=== PATIENT | female | born 1990 | race Caucasian/White ===

== ENCOUNTER 2017-03-31 10:19 | Inpatient (IN) | payer OTHER ==
[~2017-03-31] VITALS: Ht 167.6 cm; Wt 69.9 kg
[2017-03-31] MEDS ORDERED: SOD CHLORIDE 0.9% 1,000 ML IV STA (11:17)
[2017-03-31 11:32] LABS: URINE BLOOD (Dip) POC Negative (NEGATIVE)
[2017-03-31] MEDS ORDERED: SOD CHLORIDE 0.9% 250 ML IV ONE (12:06)
[2017-03-31 12:07] LABS: ANION GAP 14 (8-16); BLOOD UREA NITROGEN 9 mg/dl (7-20); CALCIUM 9.4 mg/dl (8.4-10.2); CARBON DIOXIDE 27 mmol/L (21-31); CHLORIDE 106 mmol/L (97-110); CREATININE 0.68 mg/dl (0.44-1.00); GLUCOSE 74 mg/dl (70-220); POTASSIUM 4.2 mmol/L (3.5-5.1); SODIUM 143 mmol/L (135-144)
[2017-03-31 12:20] LABS: TROPONIN-I < 0.012 ng/ml (0.00-0.12)
[2017-03-31] MEDS ORDERED: ONDANSETRON 4 MG INJ IV PRN ×2 (12:30→14:00)
[2017-03-31] MEDS ORDERED: ACETAMINOPHEN 325 MG TAB PO PRN (12:30)
[2017-03-31 12:49] LABS: ABNORMAL IP MESSAGE 1; HEMATOCRIT 18.9 % (37.0-47.0); MEAN CORPUSCULAR HEMOGLOBIN 16.1 pg (29.0-33.0); MEAN CORPUSCULAR HGB CONC 25.4 g/dl (32.0-37.0); MEAN CORPUSCULAR VOLUME 63.2 fl (82.0-101.0); MEAN PLATELET VOLUME 10.6 fl (7.4-10.4); PLATELET COUNT 324 10^3/UL (140-415); RED BLOOD COUNT 2.99 10^6/ul (4.20-5.40); RED CELL DISTRIBUTION WIDTH 19.5 % (11.5-14.5); WHITE BLOOD COUNT 4.7 10^3/ul (4.8-10.8)
--- NOTE | 2017-03-31 13:11 | RADRPT ---
PROCEDURE: Chest x-ray CLINICAL INDICATION: Weakness TECHNIQUE: Chest single view COMPARISON: None FINDINGS: The heart is normal in size. The pulmonary vessels are normal in caliber. The lungs are clear. Th e costophrenic angles are sharp. The visualized bony thorax is unremarkable. IMPRESSION: No acute cardiopulmonary disease. RPTAT: HH .Alberto Hayes MD, Date Time Electronically viewed and signed by .Alberto Hayes MD, MD on 03/31/2017 13:10 .W/
--- NOTE | 2017-03-31 13:40 | ERD ---
ER Documentation Chief Complaint Chief Complaint DIZZINESS, FAINTED HPI This is a 27-year-old female, with no past medical history or surgery, p resenting to the emergency department for dizziness, lightheadedness and 2 syncopal episodes. Patient states she feels dizzy, like the room is spinning when she is sitting or standing. Patient states at times he has chest pain and heart palpitations. Patient states she had one syncopal episode last week while at a restaurant. Patient had another syncopal episode today after taking a shower. Patient states her first syncopal episode she had loss of consciousness for approximately 15 seconds. Patient denies hitting her head. No headache. No change in mood or behavior. No vision changes. No loss of vision. No diplopia. Patient states she eats vegan and has been doing so for the past 10 months. ROS All systems reviewed and are negative except as per history of present illness. Medications Home Meds No Active Prescriptions or Reported Meds Allergies Allergies: Coded Allergies: No Known Allergy (Unverified , 03/31/17) PMhx/Soc Medical and Surgical Hx: pt denies Medical Hx, pt denies Surgical Hx Hx Alcohol Use: No Hx Substance Use: No Hx Tobacco Use: No Smoking Status: Never smoker Physical Exam Vitals Vital Signs Date Time Temp Pulse Resp B/P Pulse Ox O2 Delivery O2 Flow Rate FiO2 03/31/17 10:22 98.7 72 19 103/55 100 Physical Exam Const: No acute distress, alert, pale Head: Atraumatic Eyes: Normal Conjunctiva ENT: Normal External Ears, Nose and Mouth. Neck: Full range of motion..~ No meningismus. Resp: Clear to auscultation bilaterally. No wheezing, rhonchi or crackles. No stridor or labored breathing. Cardio: Regular rate and rhythm, no murmurs Abd: Soft, non tender, non distended. Normal bowel sounds Skin: No petechiae or rashes Back: No midline or flank tenderness Ext: No cyanosis, or edema Neur: Awake and alert Psych: Normal Mood and Affect Rectal: negative for lesions, gross occult blood Result Diagram: 04/01/17 0540 04/01/17 0541 Results 24 hrs Laboratory Tests Test 03/31/17 11:25 03/31/17 11:28 03/31/17 11:32 03/31/17 12:15 Iron Level < 10ug/dl Total Iron Binding Capacity 526ug/dl Percent Iron Saturation % SAT Sodium Level 143mmol/L Potassium Level 4.2mmol/L Chloride Level 106mmol/L Carbon Dioxide Level 27mmol/L Anion Gap 14 Blood Urea Nitrogen 9mg/dl Creatinine 0.68mg/dl Glucose Level 74mg/dl Calcium Level 9.4mg/dl Troponin I < 0.012ng/ml Bedside Urine pH (LAB) 8.5 Bedside Urine Protein (LAB) 1+ Bedside Urine Glucose (UA) Negative Bedside Urine Ketones (LAB) Negative Bedside Urine Blood Negative Bedside Urine Nitrite (LAB) Negative Bedside Urine Leukocyte Esterase (L Trace White Blood Count 4.710^3/ul Red Blood Count 2.9910^6/ul Hemoglobin 4.8g/dl Hematocrit 18.9% Mean Corpuscular Volume 63.2fl Mean Corpuscular Hemoglobin 16.1pg Mean Corpuscular Hemoglobin Concent 25.4g/dl Red Cell Distribution Width 19.5% Platelet Count 52736^3/UL Mean Platelet Volume 10.6fl Neutrophils % 77.3% Lymphocytes % 15.0% Monocytes % 7.1% Eosinophils % 0.4% Basophils % 0.2% Nucleated Red Blood Cells % 0.0/100WBC Neutrophils # 10^3/ul Lymphocytes # 10^3/ul Monocytes # 10^3/ul Eosinophils # 10^3/ul Basophils # 10^3/ul Nucleated Red Blood Cells # 10^3/ul Platelet Estimate NORMAL Polychromasia 3+ Hypochromasia 3+ Poikilocytosis 2+ Anisocytosis 3+ Microcytosis 3+ Elliptocytes 2+ Current Medications Medications (Trade) Dose Ordered Sig/Alicia Route PRN Reason Start Time Stop Time Status Last Admin Dose Admin Sodium Chloride 1,000 ml @ 1,000 mls/hr Q1H STAT IV 03/31/17 11:17 03/31/17 12:16 DC 03/31/17 11:26 Sodium Chloride (NS) 250 ml @ 0 mls/hr Q0M ONCE IV 03/31/17 12:06 03/31/17 12:10 DC 03/31/17 13:46 Procedures/MDM [place] [id number] Radiology Main Line: [phone] DIAGNOSTIC IMAGING REPORT Patient: MARY PUTNAM : 1990 Age: 27 Sex: F MR #: [id number] DOS: 03/31/17 1117 Ordering MD: KIM JAIMES NP Location: [facility] Room/Bed: PROCEDURE: Chest x-ray CLINICAL INDICATION: Weakness TECHNIQUE: Chest single view COMPARISON: None FINDINGS: The heart is normal in size. The pulmonary vessels are normal in caliber. The lungs are clear. The costophrenic angles are sharp. The visualized bony thorax is unremarkable. IMPRESSION: No acute cardiopulmonary disease. EKG: As interpreted by myself and Dr. Whipple Rate/Rhythm: Normal sinus rhythm with heart rate 83 bpm QRS, ST, T-waves: No changes consistent w/ acute ischemia Impression: No evidence of ischemia or arrhythmia MDM: This is a 27-year-old female presenting to emerge department for dizziness , lightheadedness and 2 syncopal episodes. EKG shows normal sinus rhythm with heart rate 83 bpm. Negative for STEMI. Chest x-ray reviewed by radiologist as no acute cardiopulmonary disease. CBC shows hemoglobin 4.8 and hematocrit 18.9. BMP is negative for electrolyte imbalance. Troponin is negative. Urine dip is negative for infection. Urine is negative. Consulted Dr. Whipple regarding this patient and we agree that patient requires blood transfusion and hospitalization. Digital rectal exam negative for gross blood. Patient will be admitted. Discussed findings and admission with patient and she verbalizes understanding. Patient given 1 L IV fluid bolus of normal saline. Patient's vitals are stable. Patient is stable and in no acute distress. Diagnosis is symptomatic anemia Departure Diagnosis: Primary Impression: Anemia Anemia type: unspecified type Qualified Code: D64.9 - Anemia, unspecified type Additional Impression: Syncope Syncope type: unspecified Qualified Code: R55 - Syncope, unspecified syncope type Condition: Fair KIM REYES NP Mar 31, 2017 13:40
[2017-03-31] MEDS ORDERED: SOD CHLORIDE 0.9% 1,000 ML IV SCH (13:47)
--- NOTE | 2017-03-31 13:52 | EN ---
Date/Time of Note Date/Time of Note DATE: 03/31/17 TIME: 13:51 ER Progress Note I have seen and evaluated the patient along with the PA and/or [employer] provider. I agree with the evaluation and plan of care. Please see their documentation for full ER course and evaluation. In short: This patient presents with 2 episodes of syncope and generalized fatigue and malaise. On exam: Injectable pallor is noted, benign abdominal exam. Assessment and plan: The patient was noted to have significant anemia on laboratory testing. The patient is a vegan and not taking supplements. This is likely secondary to iron deficiency versus B12 anemia. The patient will benefit from transfusion. No signs of GI bleed. No signs of menorrhagia. I discussed with the patient and/or family the risks, benefits, alternatives of blood transfusion. This includes allergic reaction and infections including HIV and hepatitis. The patient and/or family were able to verbalize these risks , stated understanding. A document has been signed and placed in the chart. The patient will be typed and crossmatched for 3 units of packed red blood cells and be admitted for further management. Accepting care team and consultations: I discussed the current laboratory data, diagnostic imaging and emergency care provided. Admitting team: dr Murillo Admitting team indication: Insurance directed ROSS RICE MD Mar 31, 2017 13:52
[2017-03-31] MEDS ORDERED: ACETAMINOPHEN 650 MG SUPP PR PRN (14:00)
[2017-03-31] MEDS ORDERED: DOCUSATE SODIUM 100 MG CAP PO PRN (14:00)
[2017-03-31] MEDS ORDERED: NACL 0.9% 3 ML SYG IV SCH (14:00)
[2017-03-31] MEDS ORDERED: MAGNESIUM HYDROXIDE 30ML CUP PO PRN (14:00)
[2017-03-31] MEDS ORDERED: BISACODYL 10 MG SUPP PR PRN (14:00)
[2017-03-31] MEDS ORDERED: HYDROCODONE/APAP (5/325) TAB PO PRN ×2 (14:00)
[2017-03-31] MEDS ORDERED: morphine 2 MG INJ IV PRN (14:00)
[2017-03-31 14:10] LABS: IRON < 10 ug/dl (35-150)
[2017-03-31 14:19] LABS: TOTAL IRON BINDING CAPACITY 526 ug/dl (241-421)
[2017-03-31 14:48] LABS: BASOPHILS % 0.2 % (0.0-2.0); EOSINOPHILS % 0.4 % (0.0-7.0); MONOCYTES % 7.1 % (0.0-11.0)
[2017-03-31 14:51] LABS: HEMOGLOBIN 4.8 g/dl (12.0-16.0); NEUTROPHILS % 77.3 % (39.0-77.0)
[2017-03-31 14:52] LABS: ANISOCYTOSIS 3+ (0-0); HYPOCHROMASIA 3+ (0-0); MICROCYTOSIS 3+ (0-0); POIKILOCYTOSIS 2+ (0-0); POLYCHROMASIA 3+ (0-0)
[2017-03-31 14:53] LABS: PLATELET ESTIMATE NORMAL
--- NOTE | 2017-03-31 15:02 | RADRPT ---
PROCEDURE: US Carotids. CLINICAL INDICATION: bruit , syncope TECHNIQUE: Multiple sonographic of the carotid bifurcation region and vertebral arteries were obta ined utilizing flores scale, duplex and color-flow imaging. The images were reviewed on a PACS worksta tion. COMPARISON: No prior studies are available for comparison. FINDINGS: Evaluation of the right carotid bifurcation region reveals no significant calcific atherosclerotic d isease. Evaluation of the left carotid bifurcation region reveals no significant calcific atherosclerotic di sease. There is antegrade flow within the vertebral arteries bilaterally. RIGHT CAROTID MEASUREMENTS: Common Carotid Mdejvo578.4 (cm/sec) Internal Carotid Artery - aeclxtpc598.1 (cm/sec) Internal Carotid Artery - mid88.7 (cm/sec) Internal Carotid Artery - odhdgp11.5 (cm/sec) Internal Carotid/Common Carotid0.98 LEFT CAROTID MEASUREMENTS: Common Carotid Sqpohh619 (cm/sec) Internal Carotid Artery - vtapsael32.5 (cm/sec) Internal Carotid Artery - pno392.5 (cm/sec) Internal Carotid Artery - ifrmna07.4 (cm/sec) Internal Carotid/Common Carotid0.97 RPTAT: AA IMPRESSION: No evidence for hemodynamically significant stenosis in the bilateral internal carotid arteries - va lidated velocity measurements with angiographic measurements, velocity criteria are extrapolated fro m diameter data as defined by the Society of Radiologists in Ultrasound Consensus Conference Radiolo gy 2003; 229;340-346. This study does indirectly reference the measurement of the distal ICA diamet er as the denominator for stenosis measurement. Normal antegrade flow in the vertebral arteries bilaterally. .nAdreas Bergman MD, Date Time Electronically viewed and signed by .Andreas Bergman MD, MD on 03/31/2017 15:02 .S/
[2017-03-31] MEDS ORDERED: SOD FERRIC GLUC COMPLX 125 MG in SOD CHLORIDE 0.9% 100 ML IVPB SCH (16:30)
[2017-03-31] MEDS ORDERED: LORAZEPAM 2 MG INJ IV PRN (17:00)
--- NOTE | 2017-03-31 17:29 | HP ---
Date/Time of Note Date/Time of Note DATE: 03/31/17 TIME: 17:25 Assessment/Plan VTE Prophylaxis VTE Prophylaxis Intervention: ambulation, SCD's Assessment/Plan Chief Complaint/Hosp Course Assessment and plan 1. Reported syncope. Will follow up on CT scan of the brain. Echocardiogram. Carotid Doppler was negative for any significant stenosis. Suspect likely secondary to anemic state. 2. Iron deficiency anemia. Will start on IV iron. Monitor H&H. Patient for blood transfusion 3. Will follow up. Admission process >40 minutes Discussed plan of care with Dr. Murillo Problems: HPI/ROS Admit Date/Time Admit Date/Time Hx of Present Illness This is a 27-year-old female with no reported past medical history came to [facility] after reports of syncope. Patient did report that she had a syncopal episode 2 weeks prior to this admission but was caught prior to falling on the ground. She reports that for the past month she has been feeling increasingly weak and dizzy audible on exertion. She also did report that she has recently started on a vegan diet. She reports her last syncopal episode happened today when she was in her room. No reports of head trauma. She was brought to [facility] for further evaluation. Upon examination she did have a carotid ultrasound done that did show her to have no evidence of hemodynamically significant stenosis. Imaging of the brain is pending. Echocardiogram is pending as well. On labs she was noted with a hemoglobin of 4.8 and hematocrit of 18.9. She was also noted to be severely iron deficient. We will evaluate her for the aformentiond issues. ROS 12 point review of systems obtained and entirely negative except that mentioned in history of present illness PMH/Family/Social Past Medical History Medical/surgical history 1. Patient reports none Social History Alcohol Use: occasionally Smoking Status: Never smoker Drug Use: none Exam/Review of Systems Vital Signs Vitals Vital Signs Date Time Temp Pulse Resp B/P Pulse Ox O2 Delivery O2 Flow Rate FiO2 03/31/17 10:22 98.7 72 19 103/55 100 Exam Constitutional: alert, oriented Psych: nl mood/affect Head: normocephalic Eyes: nl conjunctiva Respiratory: clear to auscultation, normal air movement Cardiovascular: nl pulses, regular rate and rhythm Gastrointestinal: non-tender, soft Musculoskeletal: nl extremities to inspection, nl gait and stance Extremities: normal pulses Neurological: [employer] II-XII intact, nl mental status, nl speech Labs Result Diagram: 03/31/17 1215 03/31/17 1128 Medications Medications Current Medications Sodium Chloride (NS) 1,000 ml @ 60 mls/hr [id number] IV ; Start 03/31/17 at 13:47 Ondansetron HCl (Zofran Inj) 4 mg Q6H PRN IV NAUSEA AND/OR VOMITING; Start at 14:00 Acetaminophen (Tylenol Tab) 650 mg Q6H PRN PO PAIN LEVEL 1-3 OR FEVER; Start 03/31/17 at 14:00 Acetaminophen (Tylenol Supp) 650 mg Q6H PRN KS PAIN LEVEL 1-3 OR FEVER; Start 03/31/17 at 14:00 Acetaminophen/ Hydrocodone Bitart (Martin (5/325)) 1 tab Q6H PRN PO MODERATE PAIN LEVEL 4-6; Start 03/31/17 at 14:00 Acetaminophen/ Hydrocodone Bitart (Martin (5/325)) 2 tab Q6H PRN PO SEVERE PAIN LEVEL 7-10; Start 03/31/17 at 14:00 Morphine Sulfate (morphine) 2 mg Q4H PRN IV SEVERE PAIN LEVEL 7-10; Start at 14:00 Docusate Sodium (Colace) 100 mg Q12H PRN PO CONSTIPATION; Start 03/31/17 at 14 :00 Magnesium Hydroxide (Milk Of Mag) 30 ml DAILY PRN PO CONSTIPATION; Start 03/31 at 14:00 Bisacodyl (Dulcolax Supp) 10 mg DAILY PRN [place] CONSTIPATION; Start 03/31/17 at 14:00 Pantoprazole 40 mg 40 mg DAILY@06 IV ; Start 04/01/17 at 06:00 Ferric Sodium Gluconate Complex/ Sodium Chloride (Ferrlecit/NS) 110 ml @ 110 mls/hr Q24H IVPB ; Start 03/31/17 at 16:30; Stop 04/04/17 at 17:29 Lorazepam (Ativan) 1 mg Q4 PRN IV anx; Start 03/31/17 at 17:00 NAVYA MICHAELS Mar 31, 2017 17:29
[2017-03-31 19:50] VITALS: PULSE 71
[2017-03-31 21:30] VITALS: Ht 167.6 cm; Wt 69.9 kg
[2017-03-31] MEDS: ACETAMINOPHEN 325 MG TAB PO PRN (21:43)
[2017-03-31 21:44] VITALS: BP 108/62; RESP 18
[2017-03-31] MEDS: SOD FERRIC GLUC COMPLX 125 MG in SOD CHLORIDE 0.9% 100 ML IVPB SCH (23:09)
[2017-03-31] MEDS ORDERED: INFLUENZA VIRUS VACCINE 0.5 ML (DISPENSING) IM* ONE (23:30)
[2017-04-01] VITALS (8 sets, daily range): BP systolic 100–122; BP diastolic 57–79; RESP 16–20
[2017-04-01] MEDS ORDERED: PANTOPRAZOLE 40 MG INJ IV SCH (06:00)
[2017-04-01 06:33] LABS: ABNORMAL IP MESSAGE 1; BASOPHILS % 0.8 % (0.0-2.0); EOSINOPHILS # 0.1 10^3/ul (0.0-0.5); EOSINOPHILS % 2.3 % (0.0-7.0); HEMATOCRIT 24.1 % (37.0-47.0); LYMPHOCYTES # 1.5 10^3/ul (0.8-2.9); LYMPHOCYTES % 38.9 % (15.0-51.0); MEAN CORPUSCULAR HEMOGLOBIN 19.9 pg (29.0-33.0); MEAN CORPUSCULAR VOLUME 68.5 fl (82.0-101.0); MONOCYTE # 0.3 10^3/ul (0.3-0.9); MONOCYTES % 8.8 % (0.0-11.0); NEUTROPHIL # 1.9 10^3/ul (1.6-7.5); NEUTROPHILS % 48.9 % (39.0-77.0); PLATELET COUNT 273 10^3/UL (140-415); RED BLOOD COUNT 3.52 10^6/ul (4.20-5.40); RED CELL DISTRIBUTION WIDTH 24.7 % (11.5-14.5); WHITE BLOOD COUNT 3.9 10^3/ul (4.8-10.8)
[2017-04-01 06:35] LABS: POSITIVE DIFF @See below
[2017-04-01 07:05] LABS: ALBUMIN 3.8 g/dl (3.3-4.9); ALBUMIN/GLOBULIN RATIO 1.72; BILIRUBIN,INDIRECT 1.4 mg/dl (0-1.1); BILIRUBIN,TOTAL 1.4 mg/dl (0.2-1.3); CALCIUM 8.6 mg/dl (8.4-10.2); CHOL/HDL RATIO 1.5 RATIO; CREATININE 0.71 mg/dl (0.44-1.00); MAGNESIUM 1.8 mg/dl (1.7-2.5); PHOSPHORUS 5.3 mg/dl (2.5-4.9); POTASSIUM 4.1 mmol/L (3.5-5.1)
[2017-04-01 07:19] LABS: T3 UPTAKE 36.3 % (23.5-40.5)
[2017-04-01 07:38] LABS: THYROID STIMULATING HORMONE 0.697 MIU/L (0.465-4.680)
[2017-04-01] MEDS: ACETAMINOPHEN 325 MG TAB PO PRN ×2 (09:16→15:42)
[2017-04-01] MEDS ORDERED: SOD CHLORIDE 0.9% 250 ML IV* ONE (12:01)
[2017-04-01] MEDS ORDERED: DOCU-144 PO (12:04)
[2017-04-01] MEDS ORDERED: FER325 PO (12:04)
--- NOTE | 2017-04-01 12:06 | PDOCDIS ---
Discharge Instructions DIAGNOSIS Discharge Diagnosis 1. Syncope secondary to severe iron deficiency anemia CONDITION Patient Condition: Stable FOLLOW UP/APPOINTMENTS Follow-up Plan 1. Follow-up with your primary care provider within a week NAVYA MICHAELS Apr 01, 2017 12:06
--- NOTE | 2017-04-01 14:38 | RADRPT ---
PROCEDURE: CT Brain without. CLINICAL INDICATION: Headache, syncope, dizziness. TECHNIQUE: A CT of the brain was performed on multidetector high-resolution CT scanner utilizing a xial sections from the skull base through the vertex without contrast. The scan was reviewed in sof t tissue brain and high frequency resolution bone algorithm windows. Images were reviewed on a high -resolution PACS workstation. One or more the following does reduction techniques were utilized: Aut omated exposure control, adjustment of the mA/ or kV according to patient's size, or use of iterativ e reconstruction technique. The exam CTDI = 45.01 mGy and the DLP = 720.23 mGy-cm. COMPARISON: None available. FINDINGS: The ventricles and sulci are age-appropriate. There is no intracranial hemorrhage, mass effect or mi dline shift. No abnormal intra-axial or extra-axial fluid collections are seen. The flores/white mirtha er differentiation is preserved. No acute skull abnormality is noted. The visualized paranasal sinus es are essentially clear. IMPRESSION: 1. No acute intracranial hemorrhage, transcortical infarction or mass effect. RPTAT: JJ .Jasbir Berry MD, MD Date Time Electronically viewed and signed by .Jasbir Berry MD, MD on 04/01/2017 14:37 .N/
--- NOTE | 2017-04-01 18:00 | RADRPT ---
Echocardiogram Report Patient Name: MARY PUTNAM Gender: Female Date: 1990 Study Date: 01-Apr-2017 Molder Shoulder Pad: ERICA Location: 622 Ref. Physician: NAVYA MICHAELS Quality: Good Procedures: Transthoracic echocardiogram with complete 2D, M-Mode, and doppler examination. Indications: Syncope. 2D/M Mode Doppler Measurement Value Normal Ranges Measurement Value Normal Ranges AoR Diam MM 2.9 cm LI Vmax 2.1 cm2 ACS MM 1.9 cm LI VTI 2.1 cm2 LA/Ao MM 1.2 AV Peak Grey 1.4 m/sec LA Dimen MM 3.5 cm AV Peak PG 8.3 mmHg LVIDd 2D 5.3 3.5 - 5.6 cm LVOT Peak Grey 1.0 m/sec LVIDs 2D 3.6 2.1 - 4.1 cm LVOT Peak PG 4.1 mmHg LVPWd 2D 1.1 0.6 - 1.1 cm MV E Peak Grye 1.1 m/sec IVSd 2D 1.1 0.6 - 1.1 cm MV A Peak Grey 0.4 m/sec EDV 2D 135.6 cm3 MV E/A 2.6 ESV 2D 46.9 cm3 MV Decel Time 162 msec LVOT Diam 2.0 cm MV Decel Linn 6 MV E/A 2.6 TR Peak Grey 2.7 m/sec TR Peak PG 29.1 mmHg RVSP 32.0 mmHg Findings Left Ventricle: Normal left ventricular systolic function. Normal left ventricular cavity size. Normal left ventricular wall thickness. Ejection fraction is visually estimated at 5560 %. Tissue Doppler/Mitral Doppler indices are within normal limits. Right Ventricle: Normal right ventricular size. Normal right ventricular systolic function. Left Atrium: The left atrium is normal in size. Right Atrium: The right atrium is normal in size. Mitral Valve: Normal appearance of the mitral valve. There is trace to mild mitral valve regurgitation. Aortic Valve: Normal appearance of the aortic valve. No significant aortic stenosis or insufficiency. Tricuspid Valve: Normal appearance of the tricuspid valve. Estimated peak PA systolic pressure 28 mmHg. There is mild tricuspid regurgitation. Pulmonic Valve: Normal pulmonic valve appearance. Pericardium: Normal pericardium with no significant pericardial effusion. IVC: Normal size and normal respiratory collapse consistent with normal right atrial pressure. Conclusions 1.The left ventricle is normal in size and systolic function. 2.Estimated left ventricular ejection fraction of 55-60%. 3.No significant valvular abnormalities. Electronically Signed By: Ronny Hyman 01-Apr-2017 17:59:55 -0700 Patient Name: MARY PUTNAM Study Date: 01-Apr-2017 [id number]
[2017-04-01] MEDS: SOD FERRIC GLUC COMPLX 125 MG in SOD CHLORIDE 0.9% 100 ML IVPB SCH (22:27)
[2017-04-01 22:54] LABS: HEMATOCRIT 29.6 % (37.0-47.0); HEMOGLOBIN 8.7 g/dl (12.0-16.0)
[2017-04-02] MEDS ORDERED: PANTOPRAZOLE (EC) 40 MG TAB PO SCH (06:00)
[2017-04-03] MEDS ORDERED: CLIN-73 PO (07:02)
[2017-04-03] MEDS ORDERED: TRAM50TA2 PO (07:03)
[2017-04-03] MEDS ORDERED: NAPR-260 PO (07:03)
[2017-04-03] MEDS ORDERED: BEN25 PO (07:05)
== END 2017-04-02 00:20 | disposition home or self-care (01) | DRG 812 ==
LOC: FTE 10:19 → MS2 12:27 → UNDOADMIN 14:08 → PP2 14:08
PROVIDERS: ADMIT Hospitalist; ATTEND Hospitalist
PROC: 30233N1 Transfusion of Nonautologous Red Blood Cells into Peripheral Vein, Percutaneous Approach (ICD-10-PCS; principal; 2017-03-31)
DX: D50.9 Iron deficiency anemia, unspecified (principal); R55 Syncope and collapse; R42 Dizziness and giddiness; R07.9 Chest pain, unspecified
CPT/HCPCS: 36430; 70450; 71010; 80048; 80053; 80061; 81003; 82270; 83036; 83540; 83735; 84100; 84436; 84443; 84479; 84484; 85014; 85018; 85025; 86850; 86900; 86901; 86920; 90686; 93005; 93306; 93880; C9113; J2916; J7030; J7040; P9016

== ENCOUNTER 2017-04-03 03:31 | Emergency (ER) | payer OTHER ==
[~2017-04-03] VITALS: Ht 172.7 cm; Wt 65.5 kg
[~2017-04-03 03:31] MED LIST: DOCU-144 PO; FER325 PO
[2017-04-03 03:34] VITALS: Ht 172.7 cm; Wt 65.5 kg
[2017-04-03] MEDS ORDERED: DIPHENHYDRAMINE 25 MG CAP PO ONE (06:00)
[2017-04-03] MEDS ORDERED: HYDROCODONE/APAP (5/325) TAB PO ONE (06:00)
[2017-04-03] MEDS ORDERED: CLINDAMYCIN 300 MG CAP PO ONE (06:00)
--- NOTE | 2017-04-03 06:23 | RADRPT ---
PROCEDURE: ULTRASOUND RIGHT UPPER EXTREMITY VENOUS CLINICAL INDICATION: 27-year-old female with right upper extremity pain. TECHNIQUE: Multiple sonographic images of the right upper extremity deep venous system was obtaine d utilizing grayscale, color-flow, compressive sonography and doppler imaging with augmentation. Th e images were reviewed on a PACS workstation. COMPARISON: None. FINDINGS: There is normal compressibility and flow within the right internal jugular, subclavian, axillary, ce phalic, brachial, mid basilic, radial and ulnar veins. The right upper basilic vein was not able to be visualized. IMPRESSION: No sonographic evidence for right upper extremity deep venous thrombosis however the upper basilic v ein was not able to be visualized. .Shamir Hill MD, MD Date Time Electronically viewed and signed by .Shamir Hill MD, on 04/03/2017 06:22 .M/
--- NOTE | 2017-04-03 06:29 | ERD ---
ER Documentation Chief Complaint Chief Complaint swelling of Right antecubital after receiving blood transfusion via R AC , HPI This is a 27-year-old female presents the emergency department today complaining of right arm pain and swelling and redness for the past day. Patient states she was here in the hospital and had a blood transfusion a couple of days ago and this started a day after being discharged home. She took the Jefferson that her roommate had. Denies any fevers or chills. ROS All systems reviewed and are negative except as per history of present illness. Medications Home Meds Active Scripts Diphenhydramine Hcl* (Benadryl*) 25 Mg Cap, 25 MG PO Q6, #30 CAP Prov:DORA MARTINEZ PA-C 04/03/17 Tramadol HCl (Tramadol HCl) 50 Mg Tablet, 50 MG PO Q4 Y for PAIN, #20 TAB Prov:DORA MARTINEZ PA-C 04/03/17 Naproxen* (Naprosyn*) 500 Mg Tablet, 500 MG PO BID Y for PAIN AND/OR INFLAMMATION, #30 TAB Prov:DORA MARTINEZ PA-C 04/03/17 Clindamycin Hcl* (Clindamycin Hcl*) 300 Mg Capsule, 300 MG PO QID for 7 Days, CAP Prov:DORA MARTINEZ PA-C 04/03/17 Docusate Sodium* (Colace*) 100 Mg Capsule, 100 MG PO BID Y for CONSTIPATION, # 60 CAP Prov:REGNAVYA TORREZ 04/01/17 Ferrous Sulfate* (Ferrous Sulfate*) 325 Mg Tabec, 325 MG PO TID, #90 TAB Prov:NAVYA MICHAELS 04/01/17 Allergies Allergies: Coded Allergies: No Known Allergy (Unverified , 03/31/17) PMhx/Soc History of Surgery: No Anesthesia Reaction: No Hx Neurological Disorder: No Hx Respiratory Disorders: No Hx Cardiac Disorders: No Hx Psychiatric Problems: No Hx Miscellaneous Medical Probl: No Hx Alcohol Use: No Hx Substance Use: No Hx Tobacco Use: No Smoking Status: Never smoker Physical Exam Vitals Vital Signs Date Time Temp Pulse Resp B/P Pulse Ox O2 Delivery O2 Flow Rate FiO2 04/03/17 03:34 97.8 57 20 117/77 98 Physical Exam Const: NAD Head: Atraumatic Eyes: Normal Conjunctiva ENT: Normal External Ears, Nose and Mouth. Neck: Full range of motion..~ No meningismus. Resp: Clear to auscultation bilaterally Cardio: Regular rate and rhythm, no murmurs Abd: Soft, non tender, non distended. Normal bowel sounds Skin: Right antecubital area with localized erythema, swelling and tenderness to palpation. Ext: Right antecubital area with localized erythema, swelling and tenderness palpation. Decreased range of motion secondary to pain. Pulses 2+. Distal neurovascularly intact. Neur: Awake and alert Psych: Normal Mood and Affect Results 24 hrs Current Medications Medications (Trade) Dose Ordered Sig/Alicia Route PRN Reason Start Time Stop Time Status Last Admin Dose Admin Clindamycin HCl (Cleocin) 300 mg ONCE ONCE PO 04/03/17 06:00 04/03/17 06:01 DC 04/03/17 06:11 Acetaminophen/ Hydrocodone Bitart (Jefferson (5/325)) 1 tab ONCE ONCE PO 04/03/17 06:00 04/03/17 06:01 DC 04/03/17 06:12 Diphenhydramine HCl (Benadryl) 25 mg ONCE ONCE PO 04/03/17 06:00 04/03/17 06:01 DC 04/03/17 06:11 DIAGNOSTIC IMAGING REPORT Patient: MARY PUTNAM : 1990 Age: 27 Sex: F MR #: [id number] DOS: 04/03/17 0000 Ordering MD: DORA MARTINEZ PA-C Location: E Room/Bed: PROCEDURE: ULTRASOUND RIGHT UPPER EXTREMITY VENOUS CLINICAL INDICATION: 27-year-old female with right upper extremity pain. TECHNIQUE: Multiple sonographic images of the right upper extremity deep venous system was obtained utilizing grayscale, color-flow, compressive sonography and doppler imaging with augmentation. The images were reviewed on a PACS workstation. COMPARISON: None. FINDINGS: There is normal compressibility and flow within the right internal jugular, subclavian, axillary, cephalic, brachial, mid basilic, radial and ulnar veins. The right upper basilic vein was not able to be visualized. IMPRESSION: No sonographic evidence for right upper extremity deep venous thrombosis however the upper basilic vein was not able to be visualized. .Shamir Hill MD, MD Date Time Electronically viewed and signed by .Shamir Hill MD, MD on 04/03/2017 06:22 .M/ CC: DORA MARTINEZ PA-C Procedures/MDM This a 27-year-old female presents the emergency department today complaining of right arm pain and swelling and redness for the past day. Upon review of patient's medical record she was seen here March 31 and had been diagnosed with symptomatic anemia with a hemoglobin of 3.7. She was transfused and admitted to the hospital. Today on physical exam patient does have evidence of antecubital swelling, localized erythema and warmth. I discussed the patient with Dr. Lin he has requested a Doppler ultrasound. Venous Ultrasound of the right upper extremity shows no sonographic evidence for right upper extremity deep venous thrombosis however the upper basilic vein was not able to be visualized. Dr. Lin also requested the patient be given clindamycin here in the emergency department. Symptoms at this time is consistent with cellulitis. Patient is afebrile and otherwise well-appearing. Low suspicion for septic joint or gout,sepsis, deep space infection Patient was given clindamycin, Jefferson here in the emergency department. Patient also has areas on her abdomen where the EKG leads were placed that appear to have a localized reaction. She was indicating that they are itchy. She was given Benadryl as well. At this time the patient is stable for discharge and outpatient management. Patient should follow up with their PCP in the next 1-2 days. They may return to the emergency department sooner for any persistent or worsening of symptoms. Patient understood and agreed with the plan. Dr. Lin has seen and evaluated the patient. Departure Diagnosis: Primary Impression: Cellulitis Site of cellulitis: extremity Site of cellulitis of extremity: upper extremity Laterality: right Qualified Code: L03.113 - Cellulitis of right upper extremity Condition: Fair DORA MARTINEZ PA-C Apr 03, 2017 06:29
[2017-04-03] MEDS ORDERED: CLIN-73 PO (07:02)
[2017-04-03] MEDS ORDERED: NAPR-260 PO (07:03)
[2017-04-03] MEDS ORDERED: TRAM50TA2 PO (07:03)
[2017-04-03] MEDS ORDERED: BEN25 PO (07:05)
[2017-04-03] MEDS ORDERED: IBUPROFEN 800 MG TAB PO ONE (08:00)
== END 2017-04-03 07:54 | disposition home or self-care (01) ==
LOC: FTE 03:31
DX: L03.113 Cellulitis of right upper limb (principal)
CPT/HCPCS: 93971; Z7502; Z7610

== ENCOUNTER 2017-04-05 02:21 | Emergency (ER) | payer OTHER ==
[~2017-04-05] VITALS: Ht 170.2 cm; Wt 66.5 kg
[~2017-04-05 02:21] MED LIST changes: +BEN25 PO; +CLIN-73 PO; +NAPR-260 PO; +TRAM50TA2 PO
[2017-04-05 02:24] VITALS: Ht 170.2 cm; Wt 66.5 kg
--- NOTE | 2017-04-05 03:58 | ERD ---
ER Documentation Chief Complaint Chief Complaint recheck of right arm swelling due to iv site, here 2 days ago taking abx HPI 27-year-old female presents here in emergency department for recheck, patient was seen here 2 days ago, was diagnosed to have cellulitis, possibly from phlebitis from blood transfusion. Patient is currently taking antibiotics, ibuprofen and Benadryl at home with much relief. Patient still continues to have swelling, wanted to recheck. Patient denies any fever chills. Patient denies any new symptoms. ROS All systems reviewed and are negative except as per history of present illness. Medications Home Meds Active Scripts Diphenhydramine Hcl* (Benadryl*) 25 Mg Cap, 25 MG PO Q6, #30 CAP Prov:DORA MARTINEZ PA-C 04/03/17 Tramadol HCl (Tramadol HCl) 50 Mg Tablet, 50 MG PO Q4 Y for PAIN, #20 TAB Prov:DORA MARTINEZ PA-C 04/03/17 Naproxen* (Naprosyn*) 500 Mg Tablet, 500 MG PO BID Y for PAIN AND/OR INFLAMMATION, #30 TAB Prov:DORA MARTINEZ PA-C 04/03/17 Clindamycin Hcl* (Clindamycin Hcl*) 300 Mg Capsule, 300 MG PO QID for 7 Days, CAP Prov:DORA MARTINEZ PA-C 04/03/17 Docusate Sodium* (Colace*) 100 Mg Capsule, 100 MG PO BID Y for CONSTIPATION, # 60 CAP Prov:NAVYA MICHAELS 04/01/17 Ferrous Sulfate* (Ferrous Sulfate*) 325 Mg Tabec, 325 MG PO TID, #90 TAB Prov:NAVYA MICHAELS 04/01/17 Allergies Allergies: Coded Allergies: adhesive tape (Verified Allergy, Mild, HIVES, REDNESS, 04/05/17) PMhx/Soc Medical and Surgical Hx: pt denies Surgical Hx History of Surgery: No Anesthesia Reaction: No Hx Neurological Disorder: No Hx Respiratory Disorders: No Hx Cardiac Disorders: No Hx Psychiatric Problems: Yes (ANXIETY) Hx Miscellaneous Medical Probl: Yes (CELLULITIS, ANEMIA) Hx Alcohol Use: No Hx Substance Use: No Hx Tobacco Use: No Smoking Status: Never smoker FmHx Family History: No coronary disease, No diabetes, No other Physical Exam Vitals Vital Signs Date Time Temp Pulse Resp B/P Pulse Ox O2 Delivery O2 Flow Rate FiO2 04/05/17 02:24 98.3 69 20 109/59 100 Physical Exam GENERAL: The patient is well developed and appropriate for usual state of health, in no apparent distress. CHEST: Clear to auscultation bilaterally. There are no rales, wheezes or rhonchi. HEART: Regular rate and rhythm. No murmurs, clicks, rubs or gallops. No S3 or S4. ABDOMEN: Soft, nontender and nondistended. Good bowel sounds. No rebound or guarding. No gross peritonitis. No gross organomegaly or masses. No Martínez sign or McBurney point tenderness. BACK: No midline or flank tenderness. EXTREMITIES: Noted mild swelling and redness of the right upper arm, mild tenderness on palpation induration noted. Good circulation. Equal pulses bilaterally. There is no peripheral clubbing, cyanosis or edema. No focal swelling or erythema. Full range of motion. Grossly neurovascularly intact. NEURO: Alert and oriented. Cranial nerves 2-12 intact. Motor strength in all 4 extremities with 5/5 strength. Sensation grossly intact. Normal speech and gait. SKIN: There is no apparent rash or petechia. The skin is warm and dry. HEMATOLOGIC AND LYMPHATIC: There is no evidence of excessive bruising or lymphedema. No gross cervical, axillary, or inguinal lymphadenopathy. Procedures/MDM Medical decision making: Patient has cellulitis, most likely from phlebitis, has good circulation, still has mild redness in affected area, no symptoms of any worsening condition. Patient was advised to continue taking antibiotics given, patient was advised to return to emergency department for recheck in 48 hours for reevaluation of symptoms. Patient was advised to return sooner for any worsening symptoms. No symptoms of any neurovascular compromise. Ultrasound was done to rule out any thrombophlebitis from the last time she was here. Patient was advised to follow-up as necessary. Disposition: Home. Stable Departure Diagnosis: Primary Impression: Cellulitis Site of cellulitis: extremity Site of cellulitis of extremity: upper extremity Laterality: right Qualified Code: L03.113 - Cellulitis of right upper extremity Condition: Stable Patient Instructions: Cellulitis Additional Instructions: continue medications ONUR AGUILLON NP Apr 05, 2017 03:58
== END 2017-04-05 03:53 | disposition home or self-care (01) ==
LOC: FTE 02:21
DX: L03.113 Cellulitis of right upper limb (principal)
CPT/HCPCS: 99282

== ENCOUNTER → 2017-04-22 | Emergency (ER) | payer OTHER ==
[~2017-04-22] VITALS: Ht 175.3 cm; Wt 65.4 kg
[~2017-04-22] MED LIST changes: +AZITHROMYCIN 250 MG TAB PO ONE; +CEFTRIAXONE 250 MG INJ IM ONE
[2017-04-23 00:07] VITALS: Ht 175.3 cm; Wt 65.4 kg
[2017-04-23 02:42] LABS: ABNORMAL IP MESSAGE 1; BASOPHILS % 0.8 % (0.0-2.0); EOSINOPHILS # 0.2 10^3/ul (0.0-0.5); EOSINOPHILS % 4.9 % (0.0-7.0); HEMOGLOBIN 10.7 g/dl (12.0-16.0); LYMPHOCYTES # 1.4 10^3/ul (0.8-2.9); LYMPHOCYTES % 36.7 % (15.0-51.0); MEAN CORPUSCULAR HGB CONC 29.9 g/dl (32.0-37.0); MEAN CORPUSCULAR VOLUME 81.5 fl (82.0-101.0); MEAN PLATELET VOLUME 9.2 fl (7.4-10.4); MONOCYTE # 0.4 10^3/ul (0.3-0.9); MONOCYTES % 10.4 % (0.0-11.0); NEUTROPHIL # 1.8 10^3/ul (1.6-7.5); NEUTROPHILS % 46.4 % (39.0-77.0); PLATELET COUNT 329 10^3/UL (140-415); WHITE BLOOD COUNT 3.8 10^3/ul (4.8-10.8)
[2017-04-23 02:43] LABS: RED BLOOD COUNT 4.39 10^6/ul (4.20-5.40)
[2017-04-23 02:44] LABS: HEMATOCRIT 35.8 % (37.0-47.0); MEAN CORPUSCULAR HEMOGLOBIN 24.4 pg (29.0-33.0); POSITIVE DIFF @See below
[2017-04-23 03:01] LABS: ALBUMIN 4.5 g/dl (3.3-4.9); ALBUMIN/GLOBULIN RATIO 1.73; BILIRUBIN,INDIRECT 0.5 mg/dl (0-1.1); BILIRUBIN,TOTAL 0.5 mg/dl (0.2-1.3); CALCIUM 9.4 mg/dl (8.4-10.2); CREATININE 0.73 mg/dl (0.44-1.00); POTASSIUM 3.7 mmol/L (3.5-5.1); TOTAL PROTEIN 7.1 g/dl (6.1-8.1)
--- NOTE | 2017-04-23 03:02 | ERD ---
ER Documentation Chief Complaint Chief Complaint Dizziness, possible STD exposure HPI 27-year-old female presents here to emergency department for complaints of dizziness and lightheadedness, was seen here before for anemia, once it to be rechecked, feels the dizziness on and off, is currently taking iron pills to help with her anemia. Patient denies any loss of consciousness or syncopal episode. Patient denies any chest pain or palpitations. Patient denies any dizziness at this time. Patient denies any headache at this time. Patient states that she may have possibly get exposed to STD and wants to be treated, denies any symptoms at this time. Patient denies any hematuria or dysuria. Patient denies any flank pain. ROS All systems reviewed and are negative except as per history of present illness. Medications Home Meds Active Scripts Diphenhydramine Hcl* (Benadryl*) 25 Mg Cap, 25 MG PO Q6, #30 CAP Prov:DORA MARTINEZ PA-C 04/03/17 Tramadol HCl (Tramadol HCl) 50 Mg Tablet, 50 MG PO Q4 Y for PAIN, #20 TAB Prov:DORA MARTINEZ PA-C 04/03/17 Naproxen* (Naprosyn*) 500 Mg Tablet, 500 MG PO BID Y for PAIN AND/OR INFLAMMATION, #30 TAB Prov:DORA MARTINEZ PA-C 04/03/17 Clindamycin Hcl* (Clindamycin Hcl*) 300 Mg Capsule, 300 MG PO QID for 7 Days, CAP Prov:DORA MARTINEZ PA-C 04/03/17 Docusate Sodium* (Colace*) 100 Mg Capsule, 100 MG PO BID Y for CONSTIPATION, # 60 CAP Prov:NAVYA MICHAELS 04/01/17 Ferrous Sulfate* (Ferrous Sulfate*) 325 Mg Tabec, 325 MG PO TID, #90 TAB Prov:NAVYA MICHAELS 04/01/17 Allergies Allergies: Coded Allergies: adhesive tape (Verified Allergy, Mild, HIVES, REDNESS, 04/05/17) PMhx/Soc Medical and Surgical Hx: pt denies Surgical Hx History of Surgery: No Anesthesia Reaction: No Hx Neurological Disorder: No Hx Respiratory Disorders: No Hx Cardiac Disorders: No Hx Psychiatric Problems: Yes (ANXIETY) Hx Miscellaneous Medical Probl: Yes (CELLULITIS, ANEMIA) Hx Alcohol Use: No Hx Substance Use: No Hx Tobacco Use: No Smoking Status: Never smoker FmHx Family History: No coronary disease, No diabetes, No other Physical Exam Vitals Vital Signs Date Time Temp Pulse Resp B/P Pulse Ox O2 Delivery O2 Flow Rate FiO2 04/23/17 00:07 98.2 79 20 111/66 99 Physical Exam GENERAL: The patient is well developed and appropriate for usual state of health, in no apparent distress. CHEST: Clear to auscultation bilaterally. There are no rales, wheezes or rhonchi. HEART: Regular rate and rhythm. No murmurs, clicks, rubs or gallops. No S3 or S4. ABDOMEN: Soft, nontender and nondistended. Good bowel sounds. No rebound or guarding. No gross peritonitis. No gross organomegaly or masses. No Martínez sign or McBurney point tenderness. BACK: No midline or flank tenderness. EXTREMITIES: Equal pulses bilaterally. There is no peripheral clubbing, cyanosis or edema. No focal swelling or erythema. Full range of motion. Grossly neurovascularly intact. NEURO: Alert and oriented. Cranial nerves 2-12 intact. Motor strength in all 4 extremities with 5/5 strength. Sensation grossly intact. Normal speech and gait. SKIN: There is no apparent rash or petechia. The skin is warm and dry. HEMATOLOGIC AND LYMPHATIC: There is no evidence of excessive bruising or lymphedema. No gross cervical, axillary, or inguinal lymphadenopathy. Result Diagram: 04/23/1721904/23/17 022 Results 24 hrs Laboratory Tests Test 04/23/17 02:20 04/23/17 03:50 White Blood Count 3.810^3/ul Red Blood Count 4.3910^6/ul Hemoglobin 10.7g/dl Hematocrit 35.8% Mean Corpuscular Volume 81.5fl Mean Corpuscular Hemoglobin 24.4pg Mean Corpuscular Hemoglobin Concent 29.9g/dl Red Cell Distribution Width % Platelet Count 12463^3/UL Mean Platelet Volume 9.2fl Neutrophils % 46.4% Lymphocytes % 36.7% Monocytes % 10.4% Eosinophils % 4.9% Basophils % 0.8% Nucleated Red Blood Cells % 0.0/100WBC Neutrophils # 1.810^3/ul Lymphocytes # 1.410^3/ul Monocytes # 0.410^3/ul Eosinophils # 0.210^3/ul Basophils # 0.010^3/ul Nucleated Red Blood Cells # 0.010^3/ul Sodium Level 141mmol/L Potassium Level 3.7mmol/L Chloride Level 104mmol/L Carbon Dioxide Level 26mmol/L Anion Gap 15 Blood Urea Nitrogen 13mg/dl Creatinine 0.73mg/dl Glucose Level 94mg/dl Calcium Level 9.4mg/dl Total Bilirubin 0.5mg/dl Direct Bilirubin 0.00mg/dl Indirect Bilirubin 0.5mg/dl Aspartate Amino Transf (AST/SGOT) 21IU/L Alanine Aminotransferase (ALT/SGPT) 26IU/L Alkaline Phosphatase 52IU/L Total Protein 7.1g/dl Albumin 4.5g/dl Globulin 2.60g/dl Albumin/Globulin Ratio 1.73 Urine Color YELLOW Urine Clarity CLEAR Urine pH 6.0 Urine Specific [place] 1.011 Urine Ketones NEGATIVEmg/dL Urine Nitrite NEGATIVEmg/dL Urine Bilirubin NEGATIVEmg/dL Urine Urobilinogen NEGATIVEmg/dL Urine Leukocyte Esterase NEGATIVELeu/ul Urine Hemoglobin NEGATIVEmg/dL Urine Glucose NEGATIVEmg/dL Urine Total Protein NEGATIVEmg/dl Current Medications Medications (Trade) Dose Ordered Sig/Alicia Route PRN Reason Start Time Stop Time Status Last Admin Dose Admin Ceftriaxone Sodium (Rocephin) 250 mg ONCE ONCE IM 04/23/17 02:30 04/23/17 02:31 DC 04/23/17 02:22 Azithromycin (Zithromax) 1,000 mg ONCE ONCE PO 04/23/17 02:30 04/23/17 02:31 DC 04/23/17 02:21 IM Rocephin and azithromycin was given to treat for STD exposure. Procedures/MDM Medical decision making: Patient's occasional lightheadedness most likely from her iron deficiency anemia, this time, hemoglobin and hematocrit is stable, patient is asymptomatic at this time. Patient was also given STD prophylaxis, no symptoms of pelvic inflammatory disease, abdominal emergency. No symptoms of any other acute emergent conditions at this time. Patient was advised to continue taking iron pills, patient was advised to see a retrofit installer specialist for management of her anemia. Patient was advised to return to emergency department for any worsening symptoms. Disposition: Home. Stable. Departure Diagnosis: Primary Impression: Iron deficiency anemia Iron deficiency anemia type: other iron deficiency Qualified Code: D50.8 - Other iron deficiency anemia Additional Impression: Possible exposure to STD Condition: Stable Patient Instructions: Anemia, Iron Deficiency (Adult), If You Think You Have an STD PAL,ONUR Oneill NP Apr 23, 2017 03:02
[2017-04-23 04:15] LABS: ADD UMIC NO; UR ASCORBIC ACID 20 mg/dL (NEGATIVE); UR BILIRUBIN (Dip) NEGATIVE (NEGATIVE); UR BLOOD (Dip) NEGATIVE (NEGATIVE); UR CLARITY CLEAR (CLEAR); UR COLOR YELLOW (YELLOW); UR GLUCOSE (Dip) NEGATIVE (NEGATIVE); UR KETONES (Dip) NEGATIVE (NEGATIVE); UR LEUKOCYTE ESTERASE (Dip) NEGATIVE Leu/ul (NEGATIVE); UR NITRITE (Dip) NEGATIVE (NEGATIVE); UR SPECIFIC GRAVITY (Dip) 1.011 (1.003-1.030); UR TOTAL PROTEIN (Dip) NEGATIVE (NEGATIVE); UR UROBILINOGEN (Dip) NEGATIVE (NEGATIVE)
== END | disposition home or self-care (01) ==
LOC: FTE 23:55
DX: D50.8 Other iron deficiency anemias (principal); Z20.2 Contact with and (suspected) exposure to infections with a predominantly sexual mode of transmission
CPT/HCPCS: 96372; Z7502; 80053; 81003; 85025; 87591; J0696

== ENCOUNTER 2017-05-26 21:13 | Emergency (ER) | payer OTHER ==
[~2017-05-26] VITALS: Ht 165.1 cm; Wt 65.0 kg
[~2017-05-26 21:13] MED LIST changes: -AZITHROMYCIN 250 MG TAB PO ONE; -CEFTRIAXONE 250 MG INJ IM ONE
[2017-05-26 21:50] VITALS: Ht 165.1 cm; Wt 65.0 kg
[2017-05-27] MEDS ORDERED: METR500T PO (00:37)
[2017-05-27] MEDS ORDERED: CLOT45CR19 VAG (00:37)
--- NOTE | 2017-05-27 01:10 | ERD ---
ER Documentation Chief Complaint Chief Complaint pt reports painful urination and discharge HPI 27-year-old female presents to emergency department for complaints of vaginal itching vaginal discharge, combination of whitish discharge and yellowish discharge, foul-smelling odor, was already treated for gonorrhea and chlamydia. Patient denies any abdominal pain, flank pain. Patient has not any nausea or vomiting. Patient denies any fever or chills ROS All systems reviewed and are negative except as per history of present illness. Medications Home Meds Active Scripts Clotrimazole* (Clotrimazole-7*) Vaginal Cream..g., 1 APPLIC VAG HS for 7 Days, EA Prov:ONUR AGUILLON NP 05/27/17 Metronidazole* (Flagyl*) 500 Mg Tablet, 500 MG PO TID for 7 Days, TAB Prov:ONUR AGUILLON NP 05/27/17 Diphenhydramine Hcl* (Benadryl*) 25 Mg Cap, 25 MG PO Q6, #30 CAP Prov:DORA MARTINEZ PA-C 04/03/17 Tramadol HCl (Tramadol HCl) 50 Mg Tablet, 50 MG PO Q4 Y for PAIN, #20 TAB Prov:DORA MARTINEZ PA-C 04/03/17 Naproxen* (Naprosyn*) 500 Mg Tablet, 500 MG PO BID Y for PAIN AND/OR INFLAMMATION, #30 TAB Prov:DORA MARTINEZ PA-C 04/03/17 Clindamycin Hcl* (Clindamycin Hcl*) 300 Mg Capsule, 300 MG PO QID for 7 Days, CAP Prov:DORA MARTINEZ PA-C 04/03/17 Docusate Sodium* (Colace*) 100 Mg Capsule, 100 MG PO BID Y for CONSTIPATION, # 60 CAP Prov:NAVYA MICHAELS 04/01/17 Ferrous Sulfate* (Ferrous Sulfate*) 325 Mg Tabec, 325 MG PO TID, #90 TAB Prov:NAVYA MICHAELS 04/01/17 Allergies Allergies: Coded Allergies: No Known Allergy (Unverified , 05/26/17) PMhx/Soc Medical and Surgical Hx: pt denies Surgical Hx History of Surgery: No Anesthesia Reaction: No Hx Neurological Disorder: No Hx Respiratory Disorders: No Hx Cardiac Disorders: No Hx Psychiatric Problems: Yes (ANXIETY) Hx Miscellaneous Medical Probl: Yes (CELLULITIS, ANEMIA) Hx Alcohol Use: Yes Hx Substance Use: No Hx Tobacco Use: No Smoking Status: Never smoker FmHx Family History: No coronary disease, No diabetes, No other Physical Exam Vitals Vital Signs Date Time Temp Pulse Resp B/P Pulse Ox O2 Delivery O2 Flow Rate FiO2 05/26/17 21:50 98.5 68 16 119/75 98 Physical Exam GENERAL: The patient is well developed and appropriate for usual state of health, in no apparent distress. CHEST: Clear to auscultation bilaterally. There are no rales, wheezes or rhonchi. HEART: Regular rate and rhythm. No murmurs, clicks, rubs or gallops. No S3 or S4. ABDOMEN: Soft, nontender and nondistended. Good bowel sounds. No rebound or guarding. No gross peritonitis. No gross organomegaly or masses. No Martínez sign or McBurney point tenderness. BACK: No midline or flank tenderness. EXTREMITIES: Equal pulses bilaterally. There is no peripheral clubbing, cyanosis or edema. No focal swelling or erythema. Full range of motion. Grossly neurovascularly intact. NEURO: Alert and oriented. Cranial nerves 2-12 intact. Motor strength in all 4 extremities with 5/5 strength. Sensation grossly intact. Normal speech and gait. SKIN: There is no apparent rash or petechia. The skin is warm and dry. HEMATOLOGIC AND LYMPHATIC: There is no evidence of excessive bruising or lymphedema. No gross cervical, axillary, or inguinal lymphadenopathy. Results 24 hrs Laboratory Tests Test 05/27/17 01:30 Bedside Urine pH (LAB) 5.5 Bedside Urine Protein (LAB) Negative Bedside Urine Glucose (UA) Negative Bedside Urine Ketones (LAB) Negative Bedside Urine Blood Trace-lysed Bedside Urine Nitrite (LAB) Negative Bedside Urine Leukocyte Esterase (L 1+ Procedures/MDM Decision making: Patient's symptoms was likely is consistent with vaginitis, patient also has urinary tract infection. No symptoms of any pyelonephritis no symptoms of any pelvic inflammatory disease. No symptoms of any sepsis, patient appears once hemodynamically stable. Prescription was given for clotrimazole vaginal suppository, metronidazole, ciprofloxacin, is advised to follow with primary care doctor in 2-3 days for reevaluation of symptoms. Patient was advised to return to emergency department for any worsening symptoms. Disposition: Home. Stable Departure Diagnosis: Primary Impression: Vaginitis Chronicity: acute Qualified Code: N76.0 - Acute vaginitis Additional Impression: UTI (urinary tract infection) Urinary tract infection type: acute cystitis Hematuria presence: without hematuria Qualified Code: N30.00 - Acute cystitis without hematuria Condition: Stable Patient Instructions: Preventing Vaginitis ONUR AGUILLON NP May 27, 2017 01:10
[2017-05-27 01:29] LABS: URINE BLOOD (Dip) POC Trace-lysed (NEGATIVE)
[2017-05-27] MEDS ORDERED: CIPR500T4 PO (01:34)
[2017-05-27 01:45] VITALS: BP 119/80; PULSE 75; RESP 16; TEMP 98
== END 2017-05-27 01:49 | disposition home or self-care (01) ==
LOC: FTE 21:13
DX: N76.0 Acute vaginitis (principal); N30.00 Acute cystitis without hematuria
CPT/HCPCS: 81003; Z7502; 99284

== ENCOUNTER 2017-06-22 20:11 | Emergency (ER) | END 2017-06-23 01:48 | disposition home or self-care (01) ==

== ENCOUNTER 2018-06-14 20:10 | Emergency (ER) | payer OTHER ==
[~2018-06-14] VITALS: Wt 69.5 kg
[~2018-06-14 20:10] MED LIST changes: +CIPR500T4 PO; -CLIN-73 PO; +CLIN300C10 PO; +CLOT45CR19 VAG; +METR500T PO; -NAPR-260 PO; +NAPR-985 PO
[2018-06-15] MEDS ORDERED: OMEP20CA16 PO (00:04)
[2018-06-15] MEDS ORDERED: FAMO-96 PO (00:04)
[2018-06-15 01:42] VITALS: BP 116/62; PULSE 82; RESP 18
--- NOTE | 2018-06-15 03:46 | ERD ---
ER Documentation Chief Complaint Chief Complaint bib self, cc: cwp, and dizziness x 2 days, HPI 28-year-old female presenting to the emergency department complaining of chest pain for the past 2 days. Patient states that she is concerned because she had a history of anemia and want to get her blood work checked. She denies cough she states that she had shortness of breath earlier but denies currently. She denies history of heart disease. She rates this mild to moderate ROS All systems reviewed and are negative except as per history of present illness. Medications Home Meds Active Scripts Famotidine* (Pepcid*) 20 Mg Tablet, 20 MG PO QHS for 5 Days, TAB Prov:MILLY SHORE PA-C 06/15/18 Omeprazole* (Omeprazole*) 20 Mg Capsule.dr, 20 MG PO DAILY, #14 Prov:MILLY SHORE PA-C 06/15/18 Ferrous Sulfate* (Ferrous Sulfate*) 325 Mg Tabec, 325 MG PO TID, #90 TAB Prov:ONUR AGUILLON NP 06/23/17 Ciprofloxacin Hcl* (Ciprofloxacin Hcl*) 500 Mg Tablet, 500 MG PO BID for 10 Days, TAB Prov:ONUR AGUILLON NP 05/27/17 Clotrimazole* (Clotrimazole-7*) Vaginal Cream..g., 1 APPLIC VAG HS for 7 Days, EA Prov:ONUR AGUILLON NP 05/27/17 Metronidazole* (Flagyl*) 500 Mg Tablet, 500 MG PO TID for 7 Days, TAB Prov:ONUR AGUILLON NP 05/27/17 Diphenhydramine Hcl* (Benadryl*) 25 Mg Cap, 25 MG PO Q6, #30 CAP Prov:DORA MARTINEZ PA-C 04/03/17 Tramadol HCl (Tramadol HCl) 50 Mg Tablet, 50 MG PO Q4 PRN for PAIN, #20 TAB Prov:DORA MARTINEZ PA-C 04/03/17 Naproxen* (Naprosyn*) 500 Mg Tablet, 500 MG PO BID PRN for PAIN AND/OR INFLAMMATION, #30 TAB Prov:DORA MARTINEZ PA-C 04/03/17 Clindamycin Hcl* (Clindamycin Hcl*) 300 Mg Capsule, 300 MG PO QID for 7 Days, CAP Prov:MIHCELLEDORA ZamoraValerie BRYANT 04/03/17 Docusate Sodium* (Colace*) 100 Mg Capsule, 100 MG PO BID PRN for CONSTIPATION, #60 CAP Prov:NAVYA MICHAELS 04/01/17 Allergies Allergies: Coded Allergies: No Known Allergy (Unverified , 06/22/17) PMhx/Soc History of Surgery: No Anesthesia Reaction: No Hx Neurological Disorder: No Hx Respiratory Disorders: No Hx Cardiac Disorders: No Hx Psychiatric Problems: Yes (ANXIETY) Hx Miscellaneous Medical Probl: Yes (anemia) Hx Alcohol Use: No Hx Substance Use: No Hx Tobacco Use: No Smoking Status: Never smoker Physical Exam Vitals Vital Signs Date Temp Pulse Resp B/P (MAP) Pulse Ox O2 O2 Flow FiO2 Time Delivery Rate 06/15/18 99.0 82 18 116/62 99 Room Air 01:42 (80) 06/14/18 98.3 75 19 124/72 100 20:12 (89) Physical Exam Const: No acute distress Head: Atraumatic Eyes: Normal Conjunctiva ENT: Normal External Ears, Nose and Mouth. Neck: Full range of motion. No meningismus. Resp: Clear to auscultation bilaterally Cardio: Regular rate and rhythm, no murmurs Abd: Soft, non tender, non distended. Normal bowel sounds Skin: No petechiae or rashes Back: No midline or flank tenderness Ext: No cyanosis, or edema Neur: Awake and alert Psych: Normal Mood and Affect Result Diagram: 06/14/18222206/14/182221 Results 24 hrs Laboratory Tests Test 06/14/18 22:22 06/14/18 22:23 06/14/18 23:30 06/14/18 23:32 Sodium Level 137 mmol/L Potassium Level 3.8 mmol/L Chloride Level 100 mmol/L Carbon Dioxide 27 mmol/L Level Anion Gap 10 Blood Urea 13 mg/dl Nitrogen Creatinine 0.60 mg/dl Est Glomerular > 60 mL/min Filtrat Rate mL/min Glucose Level 99 mg/dl Calcium Level 9.1 mg/dl Total Bilirubin 1.2 mg/dl Direct Bilirubin 0.00 mg/dl Indirect 1.2 mg/dl Bilirubin Aspartate Amino 21 IU/L Transf (AST/SGOT) Alanine 17 IU/L Aminotransferase (ALT/SGPT) Alkaline 42 IU/L Phosphatase Troponin I < 0.012 ng/ml Total Protein 7.6 g/dl Albumin 4.6 g/dl Globulin 3.00 g/dl Albumin/Globulin 1.53 Ratio White Blood Count 7.8 10^3/ul Red Blood Count 4.51 10^6/ul Hemoglobin 12.7 g/dl Hematocrit 39.3 % Mean Corpuscular 87.1 fl Volume Mean Corpuscular 28.2 pg Hemoglobin Mean Corpuscular 32.3 g/dl Hemoglobin Concen t Red Cell 12.9 % Distribution Width Platelet Count 222 10^3/UL Mean Platelet 9.8 fl Volume Immature 0.400 % Granulocytes % Neutrophils % 90.3 % Lymphocytes % 4.5 % Monocytes % 3.7 % Eosinophils % 0.8 % Basophils % 0.3 % Nucleated Red 0.0 /100WBC Blood Cells % Immature 0.030 10^3/ul Granulocytes # Neutrophils # 7.0 10^3/ul Lymphocytes # 0.4 10^3/ul Monocytes # 0.3 10^3/ul Eosinophils # 0.1 10^3/ul Basophils # 0.0 10^3/ul Nucleated Red 0.0 10^3/ul Blood Cells # Urine Color YELLOW Urine Clarity SLIGHTLY CLOUDY Urine pH 5.0 Urine Specific 1.016 [place] Urine Ketones 1+ mg/dL Urine Nitrite NEGATIVE mg/dL Urine Bilirubin NEGATIVE mg/dL Urine NEGATIVE mg/dL Urobilinogen Urine Leukocyte NEGATIVE Laura/ul Esterase Urine Microscopic 3 /HPF RBC Urine Microscopic 0 /HPF WBC Urine Hemoglobin NEGATIVE mg/dL Urine Glucose NEGATIVE mg/dL Urine Total NEGATIVE mg/dl Protein POC Beta HCG, NEGATIVE Qualitative Procedures/MDM This is a 28-year-old female presenting to the emergency department with chest wall tenderness for the past 2 days, differentials include not limited to costochondritis, GERD vs other. I doubt an acute cardiopulmonary condition at this time. Patient's thoracic symptoms have stabilized while in the department and are stable for outpatient follow up. Exam and work up not consistent w/ ischemia, arrhythmia, PE or dissection. EKG: read and signed off by myself and Audra Rate/Rhythm: Normal Sinus Rhythm QRS, ST, T-waves: No changes consistent w/ acute ischemia Impression: No evidence of ischemia or arrhythmia Departure Diagnosis: Primary Impression: Chest wall pain Condition: Stable Patient Instructions: Chest Pain, Uncertain Cause, Chest Wall Pain, Costochondritis, Chest Wall Strain Referrals: [facility] (PCP) Additional Instructions: FOLLOW UP WITH YOUR PRIMARY CARE PHYSICIAN TOMORROW.Return to this facility if you are not improving as expected. Take all medicines as directed. Return to this facility if you are not improving as expected. MILLY SHORE PA-C Jun 15, 2018 02:26
== END 2018-06-15 01:43 | disposition home or self-care (01) ==
LOC: FTE 20:10
DX: R07.89 Other chest pain (principal)
CPT/HCPCS: 71045; 80053; 81001; 81025; 84484; 85025; 86850; 86900; 86901; 93005; Z7502; 81003

== ENCOUNTER 2018-12-22 10:47 | Emergency (ER) | payer OTHER ==
[~2018-12-22] VITALS: Wt 67.3 kg
[~2018-12-22 10:47] MED LIST changes: +FAMO-96 PO; +OMEP20CA16 PO
[2018-12-22] MEDS ORDERED: SOD CHLORIDE 0.9% 1,000 ML IV STA (12:14)
[2018-12-22] MEDS ORDERED: KETOROLAC 30 MG INJ IV STA (12:14)
[2018-12-22] MEDS ORDERED: FER325 PO (13:21)
[2018-12-22] MEDS ORDERED: DOCU-144 PO (13:21)
--- NOTE | 2018-12-22 13:26 | ERD ---
ER Documentation Chief Complaint Chief Complaint "frequent periods", heavy vag bleed, dizzy HPI 28-year-old female presenting with vaginal bleeding. Patient states that she has been getting her menses every week and a half and it occasionally last up to 8 days. She has some mild suprapubic tenderness. She has a history of anemia and is concerned that her hemoglobin is dropping and she occasionally feels dizzy. She has not needed transfusions in the past and her hemoglobin has dropped down to as low as 4.8. Is unsure if she has any ovarian cysts or fibroids. Medical history is anemia and dizziness. NKDA. Surgical history transfusion. Social history denies ROS All systems reviewed and are negative except as per history of present illness. Medications Home Meds Active Scripts Ferrous Sulfate* (Ferrous Sulfate*) 325 Mg Tabec, 325 MG PO DAILY, #30 TAB Prov:CRISTEL RICE PA-C 12/22/18 Docusate Sodium* (Colace*) 100 Mg Capsule, 100 MG PO TID, #30 CAP Prov:CRISTEL RICE PA-C 12/22/18 Famotidine* (Pepcid*) 20 Mg Tablet, 20 MG PO QHS for 5 Days, TAB Prov:MILLY SHORE PA-C 06/15/18 Omeprazole* (Omeprazole*) 20 Mg Capsule.dr, 20 MG PO DAILY, #14 Prov:MILLY SHORE PA-C 06/15/18 Ferrous Sulfate* (Ferrous Sulfate*) 325 Mg Tabec, 325 MG PO TID, #90 TAB Prov:ONUR AGUILLON NP 06/23/17 Ciprofloxacin Hcl* (Ciprofloxacin Hcl*) 500 Mg Tablet, 500 MG PO BID for 10 Days, TAB Prov:ONUR AGUILLON NP 05/27/17 Clotrimazole* (Clotrimazole-7*) Vaginal Cream..g., 1 APPLIC VAG HS for 7 Days, EA Prov:ONUR AGUILLON NP 05/27/17 Metronidazole* (Flagyl*) 500 Mg Tablet, 500 MG PO TID for 7 Days, TAB Prov:ONUR AGUILLON NP 05/27/17 Diphenhydramine Hcl* (Benadryl*) 25 Mg Cap, 25 MG PO Q6, #30 CAP Prov:DORA MARTINEZ-C 04/03/17 Tramadol HCl (Tramadol HCl) 50 Mg Tablet, 50 MG PO Q4 PRN for PAIN, #20 TAB Prov:DORA MARTINEZC 04/03/17 Naproxen* (Naprosyn*) 500 Mg Tablet, 500 MG PO BID PRN for PAIN AND/OR INFLAMMATION, #30 TAB Prov:DORA MARTINEZC 04/03/17 Clindamycin Hcl* (Clindamycin Hcl*) 300 Mg Capsule, 300 MG PO QID for 7 Days, CAP Prov:DORA MARTINEZC 04/03/17 Docusate Sodium* (Colace*) 100 Mg Capsule, 100 MG PO BID PRN for CONSTIPATION, #60 CAP Prov:NAVYA MICHAELS [employer] 04/01/17 Allergies Allergies: Coded Allergies: No Known Allergy (Unverified , 06/22/17) PMhx/Soc History of Surgery: No Anesthesia Reaction: No Hx Neurological Disorder: No Hx Respiratory Disorders: No Hx Cardiac Disorders: No Hx Psychiatric Problems: Yes (ANXIETY) Hx Miscellaneous Medical Probl: Yes (anemia) Hx Alcohol Use: No Hx Substance Use: No Hx Tobacco Use: No FmHx Family History: No diabetes, No coronary disease, No other Physical Exam Vitals Vital Signs Date Temp Pulse Resp B/P (MAP) Pulse Ox O2 O2 Flow FiO2 Time Delivery Rate 12/22/18 98.1 63 20 104/61 98 10:49 (75) Physical Exam GENERAL: The patient is well-appearing, well-nourished, in no acute distress CHEST: Clear to auscultation bilaterally. There are no rales, wheezes or rhonchi. HEART: Regular rate and rhythm. No murmurs, clicks, rubs or gallops. ABDOMEN:Soft, nontender and nondistended. Good bowel sounds. No rebound or guarding. No gross peritonitis. No gross organomegaly or masses. BACK: No midline or flank tenderness. Result Diagram: 12/22/18 1226 12/22/18 1226 Results 24 hrs Laboratory Tests Test 12/22/18 11:48 12/22/18 12:08 12/22/18 12:10 12/22/18 12:26 Urine Color STRAW Urine Clarity CLEAR Urine pH 9.0 Urine Specific 1.005 [place] Urine Ketones NEGATIVE mg/dL Urine Nitrite NEGATIVE mg/dL Urine Bilirubin NEGATIVE mg/dL Urine NEGATIVE mg/dL Urobilinogen Urine Leukocyte NEGATIVE Laura/ul Esterase Urine Microscopic 12 /HPF RBC Urine Microscopic 2 /HPF WBC Urine Squamous FEW /HPF Epithelial Cells Urine Bacteria FEW /HPF Urine Hemoglobin 3+ mg/dL Urine Glucose NEGATIVE mg/dL Urine Total NEGATIVE mg/dl Protein POC Beta HCG, NEGATIVE Qualitative Bedside Urine pH 8.5 (LAB) Bedside Urine Negative Protein (LAB) Bedside Urine Negative Glucose (UA) Bedside Urine Negative Ketones (LAB) Bedside Urine 3+ Blood Bedside Urine Negative Nitrite (LAB) Bedside Urine Negative Leukocyte Esteras e (L White Blood Count 4.6 10^3/ul Red Blood Count 4.35 10^6/ul Hemoglobin 12.9 g/dl Hematocrit 40.4 % Mean Corpuscular 92.9 fl Volume Mean Corpuscular 29.7 pg Hemoglobin Mean Corpuscular 31.9 g/dl Hemoglobin Concen t Red Cell 12.9 % Distribution Width Platelet Count 227 10^3/UL Mean Platelet 9.6 fl Volume Immature 0.400 % Granulocytes % Neutrophils % 58.1 % Lymphocytes % 26.2 % Monocytes % 9.6 % Eosinophils % 5.0 % Basophils % 0.7 % Nucleated Red 0.0 /100WBC Blood Cells % Immature 0.020 10^3/ul Granulocytes # Neutrophils # 2.7 10^3/ul Lymphocytes # 1.2 10^3/ul Monocytes # 0.4 10^3/ul Eosinophils # 0.2 10^3/ul Basophils # 0.0 10^3/ul Nucleated Red 0.0 10^3/ul Blood Cells # Sodium Level 139 mmol/L Potassium Level 4.8 mmol/L Chloride Level 104 mmol/L Carbon Dioxide 28 mmol/L Level Anion Gap 7 Blood Urea 9 mg/dl Nitrogen Creatinine 0.60 mg/dl Est Glomerular > 60 mL/min Filtrat Rate mL/min Glucose Level 91 mg/dl Calcium Level 9.3 mg/dl Total Bilirubin 0.8 mg/dl Direct Bilirubin 0.00 mg/dl Indirect 0.8 mg/dl Bilirubin Aspartate Amino 31 IU/L Transf (AST/SGOT) Alanine 14 IU/L Aminotransferase (ALT/SGPT) Alkaline 45 IU/L Phosphatase Total Protein 7.7 g/dl Albumin 4.5 g/dl Globulin 3.20 g/dl Albumin/Globulin 1.40 Ratio Lipase 78 U/L Current Medications Medications Dose Sig/Alicia Start Time Status Last (Trade) Ordered Route PRN Stop Time Admin Dose Reason Admin Sodium 1,000 ml @ Q1H STAT 12/22/18 DC 12/22/18 Chloride 1,000 mls/hr IV 12:14 12:25 12/22/18 13:13 Ketorolac 30 mg ONCE STAT 12/22/18 DC 12/22/18 Tromethamine IV 12:14 12:24 (Toradol) 12/22/18 12:15 Procedures/MDM DIAGNOSTIC IMAGING REPORT Patient: MARY PUTNAM : 1990 Age: 28 Sex: F MR #: [id number] DOS: 12/22/18 1214 Ordering MD: CARLOS RICE PA-C Location: [facility] Room/Bed: PROCEDURE: US Pelvis. CLINICAL INDICATION: pelvic pain TECHNIQUE: Multiple sonographic images of the pelvis were obtained utilizing transabdominal and endovaginal technique. The images were reviewed on a PACS workstation. COMPARISON: None. FINDINGS: The uterus is normal in size with a normal appearance of the myometrium. The uterus measures 6.6 x 3.0 x 5.5 cm. The endometrial stripe is homogeneous in appearance and has the thickness of 4 mm. The ovaries are normal in size and echogenicity. Normal Doppler flow is identified in both ovaries. The right ovary measures 3.8 x 1.8 x 1.7 cm. The left ovary measures 3.7 x 2.0 x 2.5 cm. There are sub centimeter follicles in the ovaries. No free fluid is present within the pelvis. RPTAT: AA IMPRESSION: Unremarkable pelvic ultrasound. MDM: 28-year-old female presenting with heavy bleeding. Patient's hemoglobin is stable. Blood work is within normal limits. Vitals are stable. Exam is non- concerning. Ultrasound is within normal limits. I do not feel further imaging is indicated. I have low suspicion for hemodynamic instability. I have low suspicion for electrolyte abnormality. I have low suspicion for neuro deficit or other complication. Patient is discharged with strict ER precautions and told to follow-up with primary care within 1 to 2 days for close evaluation. Patient is told symptoms change or worsen to return immediately to the ER. All questions answered at discharge Departure Diagnosis: Primary Impression: Vaginal bleeding Condition: Stable Patient Instructions: Menorrhagia Referrals: [facility] (PCP) Additional Instructions: FOLLOW UP WITH YOUR PRIMARY CARE PHYSICIAN TOMORROW.Return to this facility if you are not improving as expected. CRISTEL RICE PA-C Dec 22, 2018 13:26
[2018-12-22 13:44] VITALS: BP 110/66; PULSE 70; RESP 20
== END 2018-12-22 13:46 | disposition home or self-care (01) ==
LOC: FTE 10:47
DX: N93.9 Abnormal uterine and vaginal bleeding, unspecified (principal); R10.2 Pelvic and perineal pain
CPT/HCPCS: 36415; 76830; 76856; 80053; 81001; 81025; 83690; 85025; 96361; 96374; J1885; J7030; Z7502; 81003